=== PATIENT | male | born 1990 | race Caucasian/White ===

== ENCOUNTER 2021-05-03 19:46 | Emergency (ER) | payer BC, SELFPAY ==
--- NOTE | ~2021-05-03 | XR_ITS ---
EXAMINATION: XR CHEST CLINICAL INFORMATION: Chest pain COMPARISON: None TECHNIQUE: Frontal portable view of the chest was obtained. 8:40 PM FINDINGS: No significant abnormality is noted involving the heart, lungs, mediastinum, bony thorax or soft tissues. XR/XR chest 1V IMPRESSION: Unremarkable examination.
[2021-05-03 19:58] VITALS: BP 192/108; PULSE 95; RESP 18; TEMP 36.8; O2SAT 98; BMI 29.2
[2021-05-03 20:07] VITALS: BP 186/113
--- NOTE | 2021-05-03 20:08 | ECG_ITS ---
Test Reason : CHEST PAIN Blood Pressure : / mmHG Vent. Rate : 083 BPM Atrial Rate : 083 BPM P-R Int : 140 ms QRS Dur : 106 ms QT Int : 372 ms P-R-T Axes : 022 048 029 degrees QTc Int : 437 ms Sinus rhythm with marked sinus arrhythmia Otherwise normal ECG No previous ECGs available Referred By: Generic ED Physician Electronically Signed By:Trevor Calles
--- NOTE | 2021-05-03 21:35 | ED_ITS ---
HPI - Chest Pain General Chief Complaint: Chest Pain Stated Complaint: Chest pain Time Seen by Provider: 05/03/21 21:19 Source: patient Mode of arrival: ambulatory Limitations: no limitations History of Present Illness HPI narrative: Patient with no significant past medical history except anxiety woke up in the morning noticed left-sided chest pain lasted for about half an hour then came back again felt anxious after having the chest pain feels pain in the left chest deep inside no shortness of breath no leg swelling no risk factor for PE patient was seen by his PCP last week and noticed to have high blood pre ssure. On arrival here patient blood pressure was 192/108 repeat blood pressure 165/112 with pulse rate of 83 Related Data Previous Rx's Medication Instructions Recorded lisinopril-hydrochlorothiazide 1 tab PO DAILY #30 tab 05/04/21 [Zestoretic] Allergies Allergy/AdvReac Type Severity Reaction Status Date / Time No Known Allergies Allergy Verified 05/03/21 19:57 Review of Systems Review of Systems: Yes all other systems are reviewed and are negative FOR[facility]LY [facility], [facility] Past Medical History Medical History Anxiety Depression PTSD (post-traumatic stress disorder) Tympanostomy tube check Social History Social History Alcohol intake: current Alcohol intake frequency: 3 or more drinks per day Alcohol type: hard liquor Patient Tobacco Use Status: Former Tobacco user Use of substances other than those prescribed or required for medical reasons: Yes Substance Use Type: Marijuana Advance Directives: No Physical Exam Vital Signs: Vital Signs: Last Vital Signs Temp 98.1 F 05/03/21 22:00 Pulse 81 05/03/21 22:00 Resp 20 05/03/21 22:00 BP 165/112 H 05/03/21 22:00 Pulse Ox 96 05/03/21 22:00 Body Mass Index 29.2 Appearance: Alert. Oriented X3. No acute distress. Eyes: PERRLA, No Nystagmus ENT: Pharynx normal. Oral Mucosa moist Neck: Normal inspection. Neck supple. CVS: Normal heart rate and rhythm. Pulses normal. Respiratory: No respiratory distress. Equal air entry bilateral, no wheezing/rales/rhonchi Abdomen: Soft and nontender. Bowel sounds are present, no mass palpable, no CVA tenderness Skin: Skin warm and dry. Normal skin color. Normal skin turgor. Extremities: No lower extremity edema. No calf tenderness Neuro: Oriented X 3. No motor deficit. No sensory deficit.No cerebellar signs , cranial nerves II-XII intact MDM - Chest Pain MDM Narrative Medical decision making narrative: Patient has atypical chest pain with history is anxiety and PTSD with blood pressure elevated which is going on for a while but not been treated no acute ischemic changes in EKG no shortness of breath will give patient lisinopril with hydrochlorothiazide advised to follow with PCP Lab Data Attestation: I reviewed the patient's lab results. Labs: Lab Results 05/03/21 05/03/21 Range/Units 21:55 21:55 D-Dimer 281 NG/ML Troponin I High Sens 4.0 (<3.5-35.0) ng/L ECG Data ECG #1: Attestation: I personally reviewed and interpreted this ECG as follows: Interpretation: Normal sinus rhythm heart rate 83 beats per minute normal axis normal intervals no acute ischemia Discharge Plan Discharge Clinical Impression: Chest pain Qualifiers: Chest pain type: precordial pain Qualified Code(s): R07.2 - Precordial pain Hypertension Qualifiers: Hypertension type: essential hypertension Qualified Code(s): I10 - Essential (primary) hypertension Patient Disposition: Home, Self-Care Instructions: Chest Pain (ED), Hypertension (ED) Additional Instructions: You have elevated blood pressure decrease salt intake and start taking medication as prescribed for high blood pressure and follow with PCP check blood pressure should be less than 140/90 Prescriptions: New lisinopril-hydrochlorothiazide [Zestoretic] 20-12.5 mg tablet 1 tab PO DAILY Qty: 30 RF: 0
[2021-05-03 22:00] VITALS: BP 165/112; PULSE 81; RESP 20; TEMP 36.7; O2SAT 96
[2021-05-03 22:16] LABS: D Dimer 281 NG/ML
[2021-05-04] MEDS: lisinopriL 20 MG TABLET PO (00:08)
[2021-05-04 00:24] VITALS: BP 171/91; PULSE 79; RESP 16; TEMP 36.7; O2SAT 97
== END 2021-05-04 00:25 | disposition home or self-care (01) ==
PROVIDERS: Emergency Provider Internal Medicine
DX: R07.2 Precordial pain (principal); I10 Essential (primary) hypertension
CPT/HCPCS: 36415; 71045; 84484; 85379; 93005; 99283; 99284

== ENCOUNTER 2022-06-12 15:31 | Emergency (ER) | payer OTHER, SELFPAY ==
[2022-06-12 15:54] VITALS: BP 137/96; PULSE 76; RESP 16; TEMP 36.1; O2SAT 97; BMI 29.0
[2022-06-12] MEDS: Ondansetron ODT 4 MG TAB.RAPDIS TRANSLINGU (16:05)
[2022-06-12 17:03] LABS: Basophils Percent Auto 0.1 % (0-2); Hematocrit 44.8 % (42.0-52.0); Hemoglobin 16.2 g/dl (14.0-18.0); Imm Gran Abs Auto 0.07 X10*3/uL (0.00-0.03); Imm Gran Pct Auto 0.6 % (0.0-0.4); Lymphocytes Absolute Auto 0.7 X10*3/uL (1.2-4.9); Lymphocytes Percent Auto 5.6 % (20-40); Mean Corpuscular HGB Conc 36.2 g/dl (31.0-36.0); Mean Corpuscular Hemoglobin 31.1 pg (27.0-33.0); Mean Platelet Volume 9.3 fL (9.4-12.4); Monocytes Absolute Auto 0.3 X10*3/uL (0.1-1.2); Monocytes Percent Auto 2.1 % (2-11); Neutrophils Absolute Auto 11.4 x10*3/uL (2.0-8.3); Neutrophils Percent Auto 91.6 % (45-73); Platelet Count 314 X10*3/uL (160-400); Red Blood Count 5.21 X10*6/uL (4.60-5.80); Red Cell Distribution Width 12.4 % (11.0-16.0); SCAN SMEAR FLAG 1; White Blood Count 12.4 X10*3/uL (4.8-10.8)
[2022-06-12 17:06] LABS: MANUAL DIFF FLAG SCAN
[2022-06-12 17:24] LABS: SLIDE REVIEW VERIFIED
[2022-06-12 17:26] LABS: COVID-19 Test Negative (Negative); IDNOW Serial# 16C4AD1C
[2022-06-12 17:29] LABS: Alanine Aminotransferase 19 U/L (0-40); Albumin Level 5.5 g/dL (3.5-5.0); Alkaline Phosphatase 82 U/L (39-117); Anion Gap 20 (12-20); Aspartate Amino Transferase 21 U/L (5-37); Bilirubin Total 0.5 mg/dL (0.0-1.0); Blood Urea Nitrogen 30 mg/dL (9-16); Calcium 9.9 mg/dL (8.4-10.2); Carbon Dioxide 19 mmol/L (22-29); Chloride 101 mmol/L (96-108); Creatinine Clr Calc Pharmacy 79.6; Estimated Glomerular Filt Rate > 60; Glucose Random 133 mg/dL (60-115); Sodium 136 mmol/L (135-145); Total Protein 8.5 g/dL (6.5-8.0)
[2022-06-12 20:25] LABS: Glucose, Whole Blood 137 mg/dL (60-115)
== END 2022-06-12 19:02 | disposition left against medical advice (07) ==
PROVIDERS: Emergency Provider Emergency Medicine; PCP Nurse Practitioner Family
DX: R11.10 Vomiting, unspecified (principal); R19.7 Diarrhea, unspecified; Z20.822 Contact with and (suspected) exposure to COVID-19
CPT/HCPCS: 80053; 82947; 85025; 87635; 99282; 99283